=== PATIENT | male | born 1990 | race Caucasian/White ===

== ENCOUNTER 2020-01-05 12:10 | Emergency (ER) | payer OTHER, SELFPAY ==
[2020-01-05 12:16] VITALS: BP 131/79; PULSE 64; RESP 16; TEMP 37.1; O2SAT 98; BMI 25.0
--- NOTE | 2020-01-05 12:20 | CT_ITS ---
EXAMINATION: CT HEAD WITHOUT CONTRAST CLINICAL INFORMATION: Trauma with headache COMPARISON: None TECHNIQUE: Contiguous axial imaging was performed from the skull base to vertex without intravenous administration of contrast. This CT examination was performed using dose optimization techniques as appropriate, variously including the following: *Automated exposure control *Adjustment of mA and/or kV according to patient size (this includes techniques or standardized protocols for targeted exams where dose is matched to indication/reason for exam; i.e. extremities or head) *Use of iterative reconstruction technique DLP: 665.70 mGy-cm FINDINGS: There is no evidence of acute intracranial hemorrhage or territorial infarction. No abnormal mass effect or midline shift is seen. Frost to white matter differentiation is well preserved. No extra-axial fluid collections are identified. The ventricles are normal in size. There is no abnormal attenuation within the brain parenchyma. The osseous structures and soft tissues are normal. The mastoid air cells and visualized portions of the paranasal sinuses are well aerated other than for some dependent mucosal thickening within the left frontal sinus. IMPRESSION: No acute intracranial pathology.
--- NOTE | 2020-01-05 12:21 | CT_ITS ---
EXAMINATION: CT CERVICAL SPINE WITHOUT CONTRAST CLINICAL INFORMATION: Trauma COMPARISON: None TECHNIQUE: CT cervical spine without intrathecal contrast. Coronal and sagittal reconstructions. This CT examination was performed using dose optimization techniques as appropriate, variously including the following: *Automated exposure control *Adjustment of mA and/or kV according to patient size (this includes techniques or standardized protocols for targeted exams where dose is matched to indication/reason for exam; i.e. extremities or head) *Use of iterative reconstruction technique DLP: 427.69 mGy-cm FINDINGS: There is no abnormal prevertebral soft tissue swelling. No acute cervical spine fracture is seen. Disc spaces are maintained. No neural foraminal encroachment. Paraspinal fat planes maintained. IMPRESSION: No significant bony abnormality of the cervical spine.
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
[2020-01-05] MEDS: Ibuprofen 600 MG TABLET PO (12:43)
--- NOTE | 2020-01-05 13:39 | PC.NURSE ---
pt ambulated to and from bathroom using steady gait
== END 2020-01-05 14:14 | disposition home or self-care (01) ==
LOC: HO.ED 13:46
PROVIDERS: Emergency Provider Emergency Medicine
DX: S09.90XA Unspecified injury of head, initial encounter (principal); S16.1XXA Strain of muscle, fascia and tendon at neck level, initial encounter; V13.4XXA Pedal cycle driver injured in collision with car, pick-up truck or van in traffic accident, initial encounter; Y93.55 Activity, bike riding; Y92.414 Local residential or business street as the place of occurrence of the external cause; Y99.9 Unspecified external cause status
CPT/HCPCS: 70450; 72125; 99284